=== PATIENT | female | born 1945 ===

== ENCOUNTER 2017-11-08 07:50 | Outpatient (CLI) | payer OTHER ==
[~2017-11-08 07:50] MED LIST: KEFLEX500 MG PO; LOSARTAN-HCTZ1 EAC1 PO; METFORMIN HCL500 M2 PO; TRAM1TAB98 PO; ZOCOR20 MG PO
== END 2017-11-08 09:00 | disposition home or self-care (01) ==
LOC: NUCLEAR 07:50
DX: C50.411 Malignant neoplasm of upper-outer quadrant of right female breast (principal); C79.51 Secondary malignant neoplasm of bone
CPT/HCPCS: 78815; A9552

== ENCOUNTER 2018-03-27 10:35 | Outpatient (CLI) | payer OTHER | END 2018-03-27 17:25 | disposition home or self-care (01) | LOC: NUCLEAR 10:35 | DX: N13.39 Other hydronephrosis (principal) | CPT/HCPCS: 78708; A9539; J1940 ==

== ENCOUNTER 2018-05-16 13:34 | Emergency (ER) | payer OTHER ==
[~2018-05-16] VITALS: Ht 165.1 cm; Wt 63.0 kg
[2018-05-16] MEDS ORDERED: JANUVIA50 MG (13:50)
== END 2018-05-17 08:01 | disposition left against medical advice (07) ==
LOC: ER 13:34
DX: R10.13 Epigastric pain (principal); D64.89 Other specified anemias; E86.0 Dehydration; N19 Unspecified kidney failure

== ENCOUNTER 2018-05-31 13:10 | Inpatient (IN) | payer OTHER ==
[~2018-05-31] VITALS: Ht 165.1 cm; Wt 58.1 kg
[~2018-05-31 13:10] MED LIST changes: +JANUVIA50 MG
[2018-06-13] MEDS ORDERED: HYOSCYAMINE0.125 M1 SL (08:23)
[2018-06-13] MEDS ORDERED: FENTANYL1 EAC3 TD (08:23)
[2018-06-13] MEDS ORDERED: CLONIDINE TD (08:23)
[2018-06-13] MEDS ORDERED: [UNRECOGNIZED DRUG - OTHER] TD (08:23)
[2018-06-13] MEDS ORDERED: LORAZEPAM2 MG/1 M2 IM (08:23)
[2018-06-14] MEDS ORDERED: COZAAR100 MG (00:16)
[2018-06-14] MEDS ORDERED: SIMVASTATIN 20 MG (00:17)
== END 2018-06-13 19:06 | disposition other institution (70) | DRG 693 ==
LOC: MEDJ 13:10
PROVIDERS: Radiology Vascular & Interventional Radiology
PROC: 30233N1 Transfusion of Nonautologous Red Blood Cells into Peripheral Vein, Percutaneous Approach (ICD-10-PCS; 2018-05-31)
PROC: 3E0336Z Introduction of Nutritional Substance into Peripheral Vein, Percutaneous Approach (ICD-10-PCS; 2018-06-02)
PROC: 0T783DZ Dilation of Bilateral Ureters with Intraluminal Device, Percutaneous Approach (ICD-10-PCS; principal; 2018-06-05 18:00)
PROC: BT43ZZZ Ultrasonography of Bilateral Kidneys (ICD-10-PCS; 2018-06-09)
PROC: 0T9430Z Drainage of Left Kidney Pelvis with Drainage Device, Percutaneous Approach (ICD-10-PCS; 2018-06-10)
PROC: 0T9330Z Drainage of Right Kidney Pelvis with Drainage Device, Percutaneous Approach (ICD-10-PCS; 2018-06-10)
PROC: 0DB98ZX Excision of Duodenum, Via Natural or Artificial Opening Endoscopic, Diagnostic (ICD-10-PCS; 2018-06-11)
PROC: 0DB68ZX Excision of Stomach, Via Natural or Artificial Opening Endoscopic, Diagnostic (ICD-10-PCS; 2018-06-11)
DX: N13.1 Hydronephrosis with ureteral stricture, not elsewhere classified (principal); K29.01 Acute gastritis with bleeding; D62 Acute posthemorrhagic anemia; C78.7 Secondary malignant neoplasm of liver and intrahepatic bile duct; C79.51 Secondary malignant neoplasm of bone; C77.3 Secondary and unspecified malignant neoplasm of axilla and upper limb lymph nodes; C78.6 Secondary malignant neoplasm of retroperitoneum and peritoneum; K51.018 Ulcerative (chronic) pancolitis with other complication; K56.690 Other partial intestinal obstruction; N17.8 Other acute kidney failure; E86.0 Dehydration; C50.411 Malignant neoplasm of upper-outer quadrant of right female breast; I10 Essential (primary) hypertension; M51.16 Intervertebral disc disorders with radiculopathy, lumbar region; K29.80 Duodenitis without bleeding; K31.7 Polyp of stomach and duodenum

== ENCOUNTER 2018-06-13 23:58 | Emergency (ER) | payer OTHER ==
[~2018-06-13] VITALS: Ht 165.1 cm; Wt 58.1 kg
[~2018-06-13 23:58] MED LIST changes: +CLONIDINE TD; +FENTANYL1 EAC3 TD; +HYOSCYAMINE0.125 M1 SL; +LORAZEPAM2 MG/1 M2 IM; +[UNRECOGNIZED DRUG - OTHER] TD
[2018-06-14] MEDS ORDERED: COZAAR100 MG (00:16)
[2018-06-14] MEDS ORDERED: SIMVASTATIN 20 MG (00:17)
== END 2018-06-14 14:18 | disposition home or self-care (01) ==
LOC: ER 23:58
DX: T85.698A Other mechanical complication of other specified internal prosthetic devices, implants and grafts, initial encounter (principal); C50.411 Malignant neoplasm of upper-outer quadrant of right female breast; C79.51 Secondary malignant neoplasm of bone; C77.3 Secondary and unspecified malignant neoplasm of axilla and upper limb lymph nodes; C78.7 Secondary malignant neoplasm of liver and intrahepatic bile duct; C78.89 Secondary malignant neoplasm of other digestive organs; C78.6 Secondary malignant neoplasm of retroperitoneum and peritoneum; K31.1 Adult hypertrophic pyloric stenosis; K56.690 Other partial intestinal obstruction